=== PATIENT | female | born 1935 | race Caucasian/White ===

== ENCOUNTER 2018-12-28 12:34 | Inpatient (IN) | payer OTHER ==
[~2018-12-28] VITALS: Ht 165.1 cm; Wt 63.6 kg
[~2018-12-28 12:34] MED LIST: AMARYL1 MG PO; AMITRIPTYLINE H50 M3 PO; ASPIRIN325 PO; BACLOFEN PO; CELEXA 20 MG TA20 MG PO; DESYREL50 MG PO; DEXILANT60 MG PO; ELAVIL PO; GLUCOPHAGE500 MG PO; LANSOPRAZOLE30 MG PO; LINZESS290 MCG PO; LIORESAL 10 MG10 MG PO; MULTIVITAMINS PO; NABUMETONE 500500 M1 PO; NEURONTIN 300300 M1 PO; NYSTATIN-TRIAMC15 G1; SIMVASTATIN40 MG PO; STOOL SOFTENER50 MG PO; VITAMIN D-32000 UNIT PO; VITAMIN D31000 UNI2 PO; VITAMIN D32000 UNIT PO
[2018-12-28 12:37] VITALS: BP 150/82
[2018-12-28] MEDS ORDERED: LIPITOR40 MG PO (12:47)
[2018-12-28] MEDS ORDERED: KEPPRA 500 MG500 M2 PO (12:48)
[2018-12-28] MEDS ORDERED: NAMENDA 10 MG T10 MG PO (12:49)
[2018-12-28] MEDS ORDERED: CYMBALTA60 MG PO (12:50)
[2018-12-28] MEDS ORDERED: COZAAR 25 MG TA25 M1 PO (12:50)
[2018-12-28] MEDS ORDERED: TOPROL XL25 MG PO (12:51)
[2018-12-28] MEDS ORDERED: METFORMIN HCL500 MG PO (12:51)
[2018-12-28] MEDS ORDERED: DONEPEZIL HCL 55 M1 PO (12:52)
[2018-12-28] MEDS ORDERED: SEROQUEL 25 MG25 M1 PO (12:53)
[2018-12-28 13:10] LABS: ABSOLUTE LYMPHOCYTES 1.1 thou/uL (0.8-5.3); ABSOLUTE MONOCYTES 0.7 thou/uL (0.0-1.2); ABSOLUTE NEUTROPHILS 5.8 thou/uL (1.6-8.1); BASOPHILS 0.3 %; EOSINOPHILS 0.2 %; HEMATOCRIT 41.5 % (37.0-47.0); HEMOGLOBIN 13.8 gm/dL (12.0-15.0); LYMPHOCYTES 14.9 %; MCH 30.2 pg (26.0-34.0); MCHC 33.2 g/dL (28.0-37.0); MCV 90.9 fL (80.0-100.0); MPV 9.2 fl. (7.2-11.1); NUCLEATED RBCS 0 /100WBC; PLATELET COUNT* 206 thou/uL (150-400); POLYS 75.6 %; RBC 4.57 mil/uL (4.20-5.00); RDW-CV 14.4 % (10.5-14.5); WBC 7.7 thou/uL (4.0-11.0)
[2018-12-28 13:24] LABS: ANION GAP 9 mmol/L (7-16); BUN 18 mg/dL (7-18); CALCIUM 8.9 mg/dL (8.5-10.1); CHLORIDE 103 mmol/L (98-107); CO2 30 mmol/L (21-32); CREATININE 0.8 mg/dL (0.6-1.3); GLUCOSE 140 mg/dL (70-99); POTASSIUM 3.6 mmol/L (3.5-5.1); SODIUM 142 mmol/L (136-145)
[2018-12-28 13:36] LABS: ALBUMIN 3.4 g/dL (3.4-5.0); ALKALINE PHOSPHATASE 67 U/L (46-116); SGOT 28 U/L (15-37); SGPT 24 U/L (30-65); TOTAL BILIRUBIN 0.9 mg/dL (<0.1-1.0); TOTAL PROTEIN 6.7 g/dL (6.4-8.2); TROPONIN-I LEVEL <0.06 ng/mL (<0.06)
[2018-12-28 13:46] LABS: URINE BILIRUBIN NEGATIVE (Negative); URINE BLOOD TRACE (Negative); URINE CLARITY CLEAR; URINE COLOR YELLOW; URINE GLUCOSE-RANDOM NEGATIVE (Negative); URINE KETONES 1+ (Negative); URINE LEUKOCYTES-REFLEX NEGATIVE (Negative); URINE PROTEIN TRACE (Negative); URINE SPECIFIC GRAVITY >= 1.030 (1.005-1.030); URINE UROBILINOGEN 0.2 E.U./dl (0.2-1.0)
[2018-12-28 13:47] LABS: URINE NITRITE-REFLEX POSITIVE (Negative)
[2018-12-28 13:51] LABS: SQUAMOUS >10 Many /LPF (0-3)
[2018-12-28 13:52] LABS: BACTERIA-REFLEX >30 Many /HPF (None Seen); CASTS None Seen /LPF (None Seen); CRYSTALS None Seen /LPF (None Seen); URINE RBC None Seen /HPF (0-2); URINE WBC-REFLEX 6-15 Few /HPF (0-5)
--- NOTE | 2018-12-28 15:03 | EKG ---
[place] [address] ELECTROCARDIOGRAM REPORT Name: MURPHYGUNJAN Tamara Room: [facility]#: [id number] Admission: 12/28/18 Attend Phys: Discharge: Date of : 37 Report #: [id number] THIS REPORT FOR: //name// [facility] ED Test Date: 2018-12-28 Test Time: 13:07:52 Pat Name: GUNJAN MURPHY Department: Room: Gender: F Student Counselor: JOSE : 1935 Requested By: Jackie Jewell Order Number: [id number] MD: Delio Diallo Measurements Intervals [place] Rate: 99 P: [place]: QRS: 19 QRSD: 71 T: -74 QT: 412 QTc: 529 Interpretive Statements sinus rhythm Borderline T abnormalities, diffuse leads Prolonged QT interval Compared to ECG 02/22/2013 14:40:44 Prolonged QT interval now present T-wave abnormality still present Electronically Signed On 12-28-2018 15:02:48 CDT by Delio Diallo [email or web address] <ELECTRONICALLY SIGNED> By: Delio Diallo MD, [facility] 12/28/18 1502 130 06 Delio Diallo MD, [facility] /EPI
[2018-12-28 16:00] VITALS: BP 160/78
[2018-12-28 16:04] VITALS: BP 172/92
--- NOTE | 2018-12-28 16:30 | NUR ---
ADMIT FROM ER TO 230 TELEPHONE REPORT GIVEN PRIOR TO ARRIVAL PATIENT TO VIA CART AND TRANSFERRED TO BED DENIES PAIN BED ALARM SET FAMILY AT BEDSIDE
[2018-12-28 16:35] VITALS: BP 189/89
[2018-12-28 17:00] VITALS: BP 160/78
[2018-12-28 20:00] VITALS: BP 152/72
[2018-12-29 00:22] VITALS: BP 116/71
[2018-12-29 04:00] VITALS: BP 165/90
--- NOTE | 2018-12-29 04:22 | NUR ---
ASSUMED PT CARE AT APPROX 1930. PT IS AWAKE AND CAN ANSWER SOME SIMPLE QUESTIONS. VSS ON ROOM AIR. PT IS TRACING SR ON TELE. PT DENIES PAIN OF THIS SHIFT. POSITION CHANGES DONE Q2H. PT IS KEPT CLEAN AND DRY. BATHING DONE BY SOFTWARE TESTING SPECIALIST ON DUTY. IV ANTIBIOTICS GIVEN PER JUL ORDERED. CALL LIGHT WITHIN REACH. HOURLY ROUNDING DONE FOR PT SAFETY. HIGH FALL PRECAUTIONS IN PLACE. [facility] PT.
[2018-12-29 08:00] VITALS: BP 149/81
[2018-12-29 09:46] LABS: HEMATOCRIT 36.1 % (37.0-47.0); HEMOGLOBIN 11.9 gm/dL (12.0-15.0); MCH 30.4 pg (26.0-34.0); MCHC 33.1 g/dL (28.0-37.0); MPV 9.4 fl. (7.2-11.1); RBC 3.92 mil/uL (4.20-5.00); RDW-CV 14.4 % (10.5-14.5); WBC 5.3 thou/uL (4.0-11.0)
[2018-12-29 10:18] LABS: ALBUMIN 2.6 g/dL (3.4-5.0); CALCIUM 8.1 mg/dL (8.5-10.1); CREATININE 0.6 mg/dL (0.6-1.3); MAGNESIUM 1.6 mg/dL (1.8-2.4); POTASSIUM 3.3 mmol/L (3.5-5.1); TOTAL BILIRUBIN 0.6 mg/dL (<0.1-1.0); TOTAL PROTEIN 5.5 g/dL (6.4-8.2)
--- NOTE | 2018-12-29 12:34 | NUR ---
WOUND CARE NOTE: CONSULT RECEIVED FOR RIGHT POSTERIOR NECK AND RIGHT EAR OPEN LESIONS. DRY, INTACT PARTIAL THICKNESS TISSUE LOSS TO RIGHT EAR AND POSTERIOR NECK/HEAD. IT IS POSSIBLE THAT THESE WERE SUSTAINED DURING HER FALL, PATIENT UNABLE TO INFORM ME OF HOW THESE OCCURED. RECOMMEND LEAVE OPEN TO AIR AT THIS TIME WILL SIGN OFF, PLEASE RECONSULT IF ANY CONCERNS OR NEEDS NOTED
--- NOTE | 2018-12-29 14:42 | NUR ---
assumed pt care report received from nurse. pt is alert awake disoriented x4. on ra. vss. pt is lethargic and has to be awaken by nurse for medication administration. potassium and magnesium replaced. pt is incontenent. bed changed. bedpan provided as needed. left shoulder painful to touch. lidocaine patch applied. q2 turn. will continue to monitor pt
[2018-12-29 16:00] VITALS: BP 164/77
--- NOTE | 2018-12-29 17:16 | NUR ---
SW attempted to meet pt several times but was with therapy for an extended period of time. SW to remain available to assist with safe dc planning.
[2018-12-29 19:20] VITALS: BP 164/84
[2018-12-30] VITALS: BP 134/66
--- NOTE | 2018-12-30 00:22 | NUR ---
INITAL ASSESMENT COMPLETED AT 1920. PT'S DAUGHTER AND GRAND DAUGHTER AT BEDSIDE ASSISTING WITH CARE. HS MEDS GIVEN AT 8 PM PER DAUGHTERS REQUEST. ED ALARM ON AND FALL PRECAUTIONS IN PLACE.
[2018-12-30 04:59] LABS: HEMATOCRIT 33.6 % (37.0-47.0); HEMOGLOBIN 11.1 gm/dL (12.0-15.0); MCH 30.3 pg (26.0-34.0); MCHC 32.9 g/dL (28.0-37.0); MCV 91.9 fL (80.0-100.0); MPV 8.8 fl. (7.2-11.1); RBC 3.66 mil/uL (4.20-5.00); RDW-CV 14.4 % (10.5-14.5); WBC 6.2 thou/uL (4.0-11.0)
[2018-12-30 05:14] LABS: CALCIUM 8.2 mg/dL (8.5-10.1); CREATININE 0.5 mg/dL (0.6-1.3); MAGNESIUM 1.8 mg/dL (1.8-2.4); POTASSIUM 4.1 mmol/L (3.5-5.1)
--- NOTE | 2018-12-30 07:10 | NUR ---
RECEIVED REPORT FROM LILY OCHOA AT 0200. PT ASLEEP, HOURLY ROUNDING COMPLETED. CALL LIGHT WITHIN REACH, HIGH FALL PRECAUTIONS IN PLACE.
[2018-12-30 08:00] VITALS: BP 142/85
[2018-12-30 15:36] VITALS: BP 142/78
--- NOTE | 2018-12-30 17:04 | NUR ---
RECEIVED REPORT FROM DUC OCHOA. ASSUMED CARE OF PT AROUND 0730. PT ALERT, ORIENTED TO PERSON ONLY. CONFUSED. VSS. PT M/S STATUS. AM ASSESSMENT AND VITALS COMPLETED CHARTED. MEDS PER EMAR. AT BEDSIDE MOST OF THE SHIFT. PT HAS REMAINED WEAK, BUT ABLE TO SIT UP ON SIDE OF BED WITH ASSISTANCE. PT BEING TURNED Q2HRS FOR COMFORT. PT HAS DENIED PAIN THIS SHIFT BUT STATES, "I FEEL LIKE I'VE BEEN HIT BY A SUBWAY". PT INCONTINENT OF URINE, PT CLEANED AND LINENS CHANGED. PLAN IS FOR PT TO DC [facility] IN A COUPLE DAYS. PT CURRENTLY SITTING UP IN BED EATING DINNER. FALL PRECAUTIONS IN PLACE. CALL LIGHT IS WITHIN REACH. HOURLY ROUNDING PERFORMED. WCTM FOR DURATION OF SHIFT.
[2018-12-30 20:00] VITALS: BP 167/89
[2018-12-31 04:00] VITALS: BP 161/85
--- NOTE | 2018-12-31 05:12 | NUR ---
ASSUMED PT CARE AT APPROX 1930. PT IS AWAKE BUT IS CONFUSED, ORIENTED ONLY TO SELF, CAN ANSWER SOME SIMPLE QUESTIONS. ASSESSMENT DONE AND CHARTED. PT DENIES PAIN THIS SHIFT. POSITION CHANGES DONE Q2H. PT IS KEPT CLEAN AND DRY. CALL LIGHT WITHIN REACH. HIGH FALL PRECAUTIONS IN PLACE. HOURLY ROUNDING DONE FOR PT SAFETY.
[2018-12-31 08:40] VITALS: BP 125/58
--- NOTE | 2018-12-31 15:22 | NUR ---
I ASSUMED CARE OF THE PATIENT AT 0700. SHE IS ALERT TO SELF AND LOCATION ONLY. BED IS IN THE LOW LOCKED POSITION AND CALL LIGHT IS IN REACH. PATIENT NEEDS ARE MET AND PAIN IS MANAGED DURING HOURLY ROUNDING. FAMILY WOULD LIKE TO DISCUSS PLACEMENT VS HOME HEALTH CARE FOR THE PATIENT. SHE WAS TRANSFERED AT 1620 TO [facility]. VITALS ARE STABLE. REPORT CALLED TO [facility] AND WAS TAKEN VIA WHEELCHAIR TO PATIENT'S NEW ROOM. IV WAS D/C'D. SHE WAS OUT OF BED FOR MEALS AND AMBULATING.
[2018-12-31 16:00] VITALS: BP 139/76
--- NOTE | 2018-12-31 17:11 | NUR ---
PT ALERT TO SELF AND CONFUSED. PT RESTING IN ROOM. PT UP TO CHAIR FOR DINNER. PT DENIES ANY NEEDS AT THIS TIME. FALL RISK PRECAUTIONS IN PLACE. HOURLY ROUNDING COMPLETED. WILL CONTINUE TO MONITOR.
[2018-12-31 20:33] VITALS: BP 154/87
--- NOTE | 2019-01-01 05:49 | NUR ---
PATIENT SLEPT THROUGH THE NIGHT, HOURLY ROUNDING DONE. REPORTED NO PAIN. NO NEW WORSENING OF CONDITION.
[2019-01-01 09:13] VITALS: BP 118/55
--- NOTE | 2019-01-01 15:09 | NUR ---
SPOKE WITH DAUGHTERS,DEL AND LOUIE. DEL IS PT.'S DPOA. PT.HAS DEMENTIA. P.T.GOT HER UP IN CHAIR WITH MOD ASSIST. PT.LIVES WITH HER , WHO HAS HAD A CVA IN THE PAST, DAUGHTER-LOUIE AND HER . SHE WAS FALLING FREQUENLTY AT HOME SO THEY DECIDED TO PUT HER IN A LTC FACILITY. FIRST ONE GAVE HER ANOTHER PT.'S MEDICATION, SO THEY TOOK HER OUT. THEY PUT HER IN A DIFFERENT ONE LAST TUESDAY AND SHE FELL THERE AND GOT VERY WEAK,UNABLE TO FEED HERSELF. DAUGHTERS ARE SAYING THEY CANNOT PUT HER IN ANOTHER FACILITY BECAUSE THEY FEEL SHE WILL NOT GET GOOD CARE. DAUGHTER LOUIE IS HER MAIN CAREGIVER AND SAID SHE WILL TAKE HER HOME AGAIN WITH POSSIBLE PRIVATE DUTY CAREGIVERS TO HELP HER SOME. DEL SAID SHE HAS MEDICAID APPLICATION ALL FILLED OUT,JUST HASNT TURNED IT IN. NOTIFIED BRUCE HALE TO CALL DAUGHTER AND POSSIBLY COME GET APPLICATION AND TURN IT IN. GAVE DEL # FOR [place] CARE GIVERS [phone]. SHE IS INTERESTED,ONCE MEDICAID GETS IN PLACE, TO SEE IF PT.COULD RECEIVE IN HOME CARE GIVERS FOR SO MANY HRS/DAY. ALSO GAVE HER PRIVATE DUTY LIST AND NURSING FACILITY LIST.
[2019-01-01 16:30] VITALS: BP 166/91
[2019-01-01 20:00] VITALS: BP 174/77
--- NOTE | 2019-01-02 04:35 | NUR ---
PATIENT HAS REMAINED ALERT AND ORIENTED X 1-2. FAIRLY COOPERATIVE WITH CARES INCLUDING HS MEDICATIONS, Q2H TURNS AND BRIEF CHECKS. VITAL SIGNS STABLE WITH HYPERTENSION. NO BM'S. RESTING QUIETLY ON HOURLY ROUNDS. CONTINUE TO MONITOR. BED ALARM ON FOR SAFETY.
[2019-01-02 07:30] VITALS: BP 178/84
[2019-01-02] MEDS ORDERED: CEPHALEXIN 250250 M1 PO (09:45)
[2019-01-02] MEDS ORDERED: LIDOPATCH1 EACH TOP (09:45)
[2019-01-02 12:30] VITALS: BP 178/84
[2019-01-02 14:14] VITALS: BP 178/84
--- NOTE | 2019-01-02 15:07 | NUR ---
MANDIE met with pt and pt dtr to discuss dc planning for today and HH services to follow. Pt dtr explained that the family is looking for a LTC facility for the future but since they had negative experiences in the past, the family wants to take more time to find the right fit for their mom. Pt dtr said that they plan to hire in home caregivers possibly through [facility] and that they will take turns providing any support and assistance for pt. MANDIE sent referral to [facility] for HH as pt/family okay with that option but [facility] was unable to accept due to staffing issues. Pt/pt family next preference for [facility] as pt had used in the past. SW faxed referral and orders to intake of [facility] and HH able to accept pt. No other dc needs expressed at this time.
--- NOTE | 2019-01-02 16:08 | NUR ---
ASSUMED CARE OF PATIENT AT APPROX 0730. ALERT AND ORIENTED X1-2. ASSESSMENT COMPLETED AND CHARTED. VSS ON ROOM AIR. NO COMPLAINTS OF PAIN, NAUSEA, OR SOA. PATIENT WORKED WITH THERAPIES IN THE BED AND PROGRESSED TOWARD GOALS. PATIENT DISCHARGED AT 1545 WITH ALL PERSONAL BELONGINGS, PRESCRIPTIONS, DIVHARGE INFORMATION AND SET UP WITH HOME HEALTH.
== END 2019-01-02 15:45 | disposition home health service (06) | DRG 689 ==
LOC: M.ERS 12:34 → M.2W 14:47 → M.TBA-ER 14:47 → M.2W 16:17 → M.ORTHSURG 12-31 14:28
PROVIDERS: Nurse Practitioner Family; ADMIT Internal Medicine
DX: N39.0 Urinary tract infection, site not specified (principal); S06.5X0A Traumatic subdural hemorrhage without loss of consciousness, initial encounter; R65.10 Systemic inflammatory response syndrome (SIRS) of non-infectious origin without acute organ dysfunction; I10 Essential (primary) hypertension; E78.5 Hyperlipidemia, unspecified; M19.90 Unspecified osteoarthritis, unspecified site; I25.10 Atherosclerotic heart disease of native coronary artery without angina pectoris; S00.01XA Abrasion of scalp, initial encounter; B96.20 Unspecified Escherichia coli [E. coli] as the cause of diseases classified elsewhere; F32.9 Major depressive disorder, single episode, unspecified; M25.512 Pain in left shoulder; M79.7 Fibromyalgia; G25.81 Restless legs syndrome; F03.90 Unspecified dementia, unspecified severity, without behavioral disturbance, psychotic disturbance, mood disturbance, and anxiety; W18.09XA Striking against other object with subsequent fall, initial encounter; Y93.89 Activity, other specified; Y92.098 Other place in other non-institutional residence as the place of occurrence of the external cause; Y99.8 Other external cause status; Z90.49 Acquired absence of other specified parts of digestive tract; Z90.710 Acquired absence of both cervix and uterus; I25.2 Old myocardial infarction; Z95.5 Presence of coronary angioplasty implant and graft; Z79.84 Long term (current) use of oral hypoglycemic drugs; Z79.899 Other long term (current) drug therapy; Z88.2 Allergy status to sulfonamides; Z91.011 Allergy to milk products